=== PATIENT | male | born 1940 | race Caucasian/White ===

== ENCOUNTER 2017-12-01 09:47 | Emergency (ER) | payer OTHER ==
[~2017-12-01] VITALS: Ht 177.8 cm; Wt 95.2 kg
[~2017-12-01 09:47] MED LIST: ASPIRIN EC81 MG PO; AUGMENTIN 875-1 EACH PO; CYCLOBENZAPRINE10 MG PO; LIPITOR20 MG PO; NORCO 5-325 TA1 EACH PO; PLAVIX75 MG PO; PREDNISONE20 MG PO; TERAZOSIN HCL2 MG PO
[2017-12-01] MEDS ORDERED: ZOFRAN ODT4 MG PO (12:23)
[2017-12-01] MEDS ORDERED: MECLIZINE HCL25 MG PO (12:23)
--- NOTE | 2017-12-01 12:55 | EKG ---
[facility] [address] [facility] [place], [place] [address] Signed Normal sinus rhythm Incomplete right bundle branch block Borderline ECG No previous ECGs available Confirmed by ISMA KINSEY MD ([id number]) on 12/01/2017 12:54:48 PM Electronically Signed By: ISMA KINSEY MD 12/01/17 1255 PATIENT NAME: DEXTER COOPER FRANK Electrocardiogram DATE OF : 42 PHYSICIAN: ISMA KINSEY MD REPORT #: [id number] REPORT IS CONFIDENTIAL AND NOT TO BE RELEASED WITHOUT AUTHORIZATION
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
== END 2017-12-01 12:30 | disposition home or self-care (01) ==
LOC: ED 09:47
DX: R42 Dizziness and giddiness (principal); J44.9 Chronic obstructive pulmonary disease, unspecified; Z87.891 Personal history of nicotine dependence; Z79.899 Other long term (current) drug therapy
CPT/HCPCS: 70450; 80053; 84484; 85025; 93005; 93010; 96361; 96374; 99284; J2405; J7040